=== PATIENT | male | born 1970 | race Caucasian/White ===

== ENCOUNTER 2022-03-28 18:03 | Emergency (ER) | payer OTHER ==
[~2022-03-28] VITALS: Ht 182.9 cm; Wt 86.2 kg
[2022-03-28 18:05] VITALS: BP_SYST 129
[2022-03-28 19:59] LABS: BASOPHILS % (AUTO) 0.7 % (0.0-2.0); EOSINOPHILS # (AUTO) 0.7 K/uL (0.0-0.4); EOSINOPHILS % (AUTO) 11.6 % (0.0-4.0); HEMATOCRIT 42.5 % (36-54); HEMOGLOBIN 14.8 g/dL (14.0-18.0); LYMPHOCYTES # (AUTO) 1.5 K/uL (1.0-5.5); LYMPHOCYTES % (AUTO) 25.3 % (20.5-51.5); MEAN CORPUSCULAR HEMOGLOBIN 32 pg (27-31); MEAN CORPUSCULAR HGB CONC 35 % (32-36); MEAN CORPUSCULAR VOLUME 91 fL (79.0-98.0); MONOCYTES # (AUTO) 0.4 K/uL (0.0-1.0); MONOCYTES % (AUTO) 6.3 % (1.7-9.3); NEUTROPHILS # (AUTO) 3.2 K/uL (1.8-7.7); NEUTROPHILS % (AUTO) 56.1 % (40.0-70.0); PLATELET COUNT (AUTO) 176 K/uL (130-430); WHITE BLOOD COUNT (AUTO) 5.8 K/uL (4.8-10.8)
[2022-03-28 20:07] LABS: CREATININE 1.07 mg/dL (0.55-1.30); POTASSIUM 3.8 mmol/L (3.5-5.1)
[2022-03-28 20:13] LABS: ALBUMIN 3.3 g/dL (3.4-4.8)
[2022-03-28 20:29] LABS: TOTAL BILIRUBIN 0.2 mg/dL (0.0-1.0)
[2022-03-28 22:29] VITALS: BP_SYST 129
[2022-03-28] MEDS ORDERED: clonazePAM 0.5 MG TABLET PO ONE (23:45)
== END 2022-03-29 02:06 ==
LOC: SED 18:03
DX: H35.61 Retinal hemorrhage, right eye (principal); Z20.822 Contact with and (suspected) exposure to COVID-19
CPT/HCPCS: 36415; 80053; 85025; 99283